=== PATIENT | male | born 1995 | race Caucasian/White ===

== ENCOUNTER 2017-07-29 09:31 | Outpatient (CLI) | payer BC, OTHER | END 2017-07-29 09:32 | disposition home or self-care (01) | LOC: CTENTCT 09:31 | PROVIDERS: ATTEND Specialist | DX: J32.9 Chronic sinusitis, unspecified (principal) | CPT/HCPCS: 70486 ==

== ENCOUNTER 2017-08-01 11:13 | Day surgery (SDC) | payer BC, OTHER ==
[2017-07-31 11:17] VITALS: BMI 31.1
[2017-08-01] MEDS ORDERED: Oxymetazoline HCl 0.05% ( 15 ML ) ONE ×2 (11:45→12:46)
[2017-08-01] MEDS ORDERED: Midazolam HCl 2 mg/2 ml Vial ONE (12:36)
[2017-08-01] MEDS ORDERED: Fentanyl 250 MCG/5 ML VIAL ONE (12:36)
[2017-08-01] MEDS ORDERED: Lidocaine 1% w/Epinephrine 1:200K 30 ML VIAL ONE (12:46)
[2017-08-01] MEDS ORDERED: Bacitracin Zinc Ointment 30 gm TUBE ONE (12:46)
[2017-08-01] MEDS ORDERED: methylPREDNISolone Acetate 40 mg/ml Vial ONE (13:48)
[2017-08-01] MEDS ORDERED: Lidocaine 1% PF 5 ML VIAL ONE (13:52)
[2017-08-01] MEDS ORDERED: Ondansetron HCl/PF 4 MG/2 ML Vial ONE (13:52)
[2017-08-01] MEDS ORDERED: Propofol 200 MG/20 ML VIAL ONE ×2 (13:52)
[2017-08-01] MEDS ORDERED: Glycopyrrolate 0.2 MG/ML 5 ML SYRINGE ONE (13:52)
--- NOTE | 2017-08-01 15:29 | OP ---
PREOPERATIVE DIAGNOSES: Jamie tonsillitis, recurrent obstructive tonsillar hypertrophy, deviated septum, chronic sinusitis, hypertrophic inferior turbinates. POSTOPERATIVE DIAGNOSES: Jamie tonsillitis, recurrent obstructive tonsillar hypertrophy, deviated septum, chronic sinusitis, hypertrophic inferior turbinates. PROCEDURES PERFORMED: 1. Septoplasty. 2. Bilateral nasal endoscopy with maxillary antrostomy. 3. Bilateral nasal endoscopy with total ethmoidectomy. 4. Bilateral nasal endoscopy with frontal sinusotomy. 5. Bilateral nasal endoscopy with sphenoidotomy. 6. Septoplasty. 7. Bilateral nasal septal mucosal resection of inferior turbinates. 8. Tonsillectomy over 12 years of age. PROCEDURE IN DETAIL: After consent was obtained, the patient was identified, brought to the operati ng room, and placed on the operating room table in the supine position. Consent was obtained, notif bere the patient of the possibility of additional infections, bleeding, brain injury, and eye/orbita l injury. The patient was placed on the operating room table, and general endotracheal anesthesia and intravenous access was obtained. The patient was then positioned, prepped and draped for endosc opic sinus surgery. Nasal preparation included trimming nasal vestibular hairs and spraying in topi riccardo Afrin. We then placed Afrin topical solution on nasal pledgets and strategically located them i ntranasally. The perinasal mucosa was injected with 1% lidocaine with 1:100,000 epinephrine in the submucoperichondrial plane of the septum, lateral nasal wall, and anterior to the uncinate. The pat ient was then prepped and draped in a sterile fashion and positioned for endoscopic sinus surgery. Septoplasty: After consent was obtained, the patient was identified, brought to the operating room, and placed on the operating room table in the supine position. Consent was obtained, notifying the patient of the possibility of additional infections, bleeding, brain injury, and eye/orbital injury . The patient was placed on the operating room table, and general endotracheal anesthesia and intr avenous access was obtained. The patient was then positioned, prepped and draped for endoscopic sin us surgery. Nasal preparation included trimming nasal vestibular hairs and spraying in topical Afri n. We then placed Afrin topical solution on nasal pledgets and strategically located them intranasa lly. The perinasal mucosa was injected with 1% lidocaine with 1:100,000 epinephrine in the submucop erichondrial plane of the septum, lateral nasal wall, and anterior to the uncinate. The patient was then prepped and draped in a sterile fashion and positioned for endoscopic sinus surgery. At this point, we then turned our attention to the contralateral side and proceeded with endoscopic sinus surgery. Maxillary Antrostomy: The uncinate was then identified and the extent of the uncinate was appreciat ed by out-fracturing the uncinate with the ball-tip probe. We then used the sickle blade to disarti culate the uncinate from the lateral nasal wall. This was then removed with straight biting and upb iting punches with the remaining shrouds of mucosa and bony septum removed with the micro-debrider. The natural os of the maxillary sinus was then identified and enlarged with the maxillary punches a nd back biting forceps. Total Ethmoidectomy: The anterior face of the ethmoid bulla was entered and with the micro-debrider , dissection continued posteriorly to the ground lamella. The limits of dissection included the ins ertion of the middle turbinate, medial orbital wall, and base of skull. We similarly identified the frontal recess and removed shrouds of bone and debris in that region to obtain patency into the agg er nasi region and frontal recess. We then entered the ground lamella and its anteroinferior aspect and proceeded posteriorly, opening the posterior ethmoid air-cell system. Again, the limits of dis section included the base of skull and medial orbital wall. Frontal sinusotomy: The anterior face of the ethmoid bulla was entered and with the micro-debrider, dissection continued posteriorly to the ground lamella. The limits of dissection included the inse rtion of the middle turbinate, medial orbital wall, and base of skull. We similarly identified the frontal recess and removed shrouds of bone and debris in that region to obtain patency into the Agge r Nasi region and frontal recess. We then entered the ground lamella and its anteroinferior aspect and proceeded posteriorly, opening the posterior ethmoid air-cell system. Again, the limits of diss ection included the base of skull and medial orbital wall. Sphenoidotomy: The anterior face of the sphenoid was identified and entered in its extreme anteroin ferior aspect. A sphenoid punch was then used to enlarge the sphenoidotomy and no injury to the opt ic nerve or internal carotid artery occurred. Septoplasty: After consent was obtained, the patient was identified, brought to the operating room, and placed on the operating room table in the supine position. Consent was obtained, notifying the patient of the possibility of additional infections, bleeding, brain injury, and eye/orbital injury . The patient was placed on the operating room table, and general endotracheal anesthesia and intr avenous access was obtained. The patient was then positioned, prepped and draped for endoscopic sin us surgery. Nasal preparation included trimming nasal vestibular hairs and spraying in topical Afri n. We then placed Afrin topical solution on nasal pledgets and strategically located them intranasa lly. The perinasal mucosa was injected with 1% lidocaine with 1:100,000 epinephrine in the submucop erichondrial plane of the septum, lateral nasal wall, and anterior to the uncinate. The patient was then prepped and draped in a sterile fashion and positioned for endoscopic sinus surgery. At this point, we then turned our attention to the contralateral side and proceeded with endoscopic sinus morin rgery. At the completion of the case, Rice keel splints were placed in the ethmoid cavities after the ethmo idectomy. There were no complications. The patient tolerated the procedure well and was discharged to the recovery room in stable condition prior to return to the preoperative Day Stay with ultimate discharge home. Prescriptions for pain medication and antibiotics were provided. The patient rece ived intramuscular Depo-Medrol during the case. Tonsillectomy: After consent was obtained, the patient was identified, brought to the operating osman m, and placed on the operating table in the supine position. General endotracheal anesthesia and in travenous access was obtained and we proceeded with positioning the patient for oropharyngeal surger y. Oropharyngeal exposure was obtained with a Karsten-Silvino mouth gag after a head drape was placed and secured with a towel clip. The Karsten-Silvino mouth gag was then juaquin pended from the Rochelle tray and palatal elevation was achieved with a red rubber catheter. The right tonsil was addressed first. We used a curved Allis to grasp the tonsil and retract it medially as a n anterior pillar incision was made with a #12 blade. The retrotonsillar fascial plane was then est ablished and blunt dissection was performed with the suction cautery. Blood vessels were anticipate d, identified, and cauterized as they were encountered. Ultimately, dissection was carried to the p osterior tonsillar pillar mucosa which was incised hemostatically, as well as the base of tongue con nection. The tonsil was then passed off as a specimen and bleeding points within the tonsillar bed were cauterized under direct visualization. We subsequently turned our attention to the contralater al side, where using a similar technique, a near identical procedure was performed. Again, the tons il was grasped and retracted medially with a curved Allis as an anterior pillar incision was made wi th a #12 blade. The retrotonsillar fascial plane was established and while the anterior pillar was retracted medially, the hemostatic blunt dissection of the tonsil with a suction cautery was perform ed with blood vessels anticipated, identified, and cauterized as they were encountered. Again, diss ection continued to the base of tongue and posterior tonsillar pillar mucosa which was incised in a hemostatic fashion. The tonsillar beds were then carefully inspected and bleeding points were ident ified and cauterized with a suction cautery. After this portion of the procedure, hemostasis was co mpletely obtained. The patient's oral cavity was copiously irrigated with iced saline and subsequen tly suctioned. We then used the red rubber catheter to suction the gastric contents and the patient was subsequently aroused, awakened, and extubated without difficulty and transported to the recover y room in stable condition. There were no complications.
[2017-08-01] MEDS ORDERED: Meperidine HCl/PF 25 MG/ML VIAL ONE (15:33)
[2017-08-01] MEDS ORDERED: Fentanyl 100 MCG/2 ML VIAL ONE (15:45)
[2017-08-01] MEDS ORDERED: Meperidine HCl/PF 25 MG/ML VIAL IV PRN (15:54)
[2017-08-01] MEDS ORDERED: Ondansetron HCl/PF 4 MG/2 ML Vial IVP PRN (15:54)
[2017-08-01] MEDS ORDERED: Promethazine HCl 25 MG/ML VIAL IM/IV PRN (15:54)
== END 2017-08-01 17:45 | disposition home or self-care (01) ==
LOC: SDC 11:13
PROVIDERS: ATTEND Specialist
PROC: 099Q4ZZ Drainage of Right Maxillary Sinus, Percutaneous Endoscopic Approach (ICD-10-PCS; principal; 2017-08-01)
PROC: 09BT4ZZ Excision of Left Frontal Sinus, Percutaneous Endoscopic Approach (ICD-10-PCS; principal; 2017-08-01)
PROC: 09TL4ZZ Resection of Nasal Turbinate, Percutaneous Endoscopic Approach (ICD-10-PCS; principal; 2017-08-01)
PROC: 09SM4ZZ Reposition Nasal Septum, Percutaneous Endoscopic Approach (ICD-10-PCS; principal; 2017-08-01)
PROC: 09BW4ZZ Excision of Right Sphenoid Sinus, Percutaneous Endoscopic Approach (ICD-10-PCS; principal; 2017-08-01)
PROC: 099R4ZZ Drainage of Left Maxillary Sinus, Percutaneous Endoscopic Approach (ICD-10-PCS; principal; 2017-08-01)
PROC: 09TV4ZZ Resection of Left Ethmoid Sinus, Percutaneous Endoscopic Approach (ICD-10-PCS; principal; 2017-08-01)
PROC: 09BS4ZZ Excision of Right Frontal Sinus, Percutaneous Endoscopic Approach (ICD-10-PCS; principal; 2017-08-01)
PROC: 0CTPXZZ Resection of Tonsils, External Approach (ICD-10-PCS; principal; 2017-08-01)
PROC: 09TU4ZZ Resection of Right Ethmoid Sinus, Percutaneous Endoscopic Approach (ICD-10-PCS; principal; 2017-08-01)
PROC: 09BX4ZZ Excision of Left Sphenoid Sinus, Percutaneous Endoscopic Approach (ICD-10-PCS; principal; 2017-08-01)
DX: J35.01 Chronic tonsillitis (principal); J32.9 Chronic sinusitis, unspecified; J34.2 Deviated nasal septum; J34.3 Hypertrophy of nasal turbinates; F17.290 Nicotine dependence, other tobacco product, uncomplicated; Z79.51 Long term (current) use of inhaled steroids; Z79.899 Other long term (current) drug therapy; Z98.890 Other specified postprocedural states
CPT/HCPCS: 88304; 96374; J0131; J0360; J1030; J2001; J2175; J2250; J2270; J2405; J2704; J3010

== ENCOUNTER 2017-08-06 00:49 | Observation (INO) | payer BC, OTHER ==
[2017-08-06] MEDS ORDERED: Fentanyl 100 MCG/2 ML VIAL ONE ×3 (01:18→03:05)
[2017-08-06] MEDS ORDERED: EPINEPHrine 1 MG/10 ML Abboject SYRINGE ONE ×2 (01:32→02:12)
[2017-08-06] MEDS ORDERED: Propofol 200 MG/20 ML VIAL ONE (01:48)
[2017-08-06] MEDS ORDERED: Succinylcholine Chloride 20 MG/ML 10 ml SYRINGE FS ONE (01:48)
[2017-08-06] MEDS ORDERED: Dexamethasone 20 MG/5 ML VIAL ONE (01:48)
[2017-08-06] MEDS ORDERED: Lidocaine 1% PF 5 ML VIAL ONE (01:48)
[2017-08-06] MEDS ORDERED: Ondansetron HCl/PF 4 MG/2 ML Vial ONE (01:48)
[2017-08-06] MEDS ORDERED: Promethazine HCl 25 MG/ML VIAL IM PRN (02:51)
[2017-08-06] MEDS ORDERED: Ondansetron HCl/PF 4 MG/2 ML Vial IVP PRN (02:51)
[2017-08-06] MEDS ORDERED: Promethazine HCl 25 MG/ML VIAL SLOW IVP PRN (02:51)
[2017-08-06] MEDS: Sodium Chloride 0.9% 1,000 ML IV SCH ×3 (04:04→20:27)
[2017-08-06 04:12] VITALS: BMI 30.2
--- NOTE | 2017-08-06 04:42 | OP ---
DATE OF PROCEDURE: 08/06/2017 PREOPERATIVE DIAGNOSES: 1. Post-tonsillectomy hemorrhage. 2. Post-sinus surgery epistaxis. POSTOPERATIVE DIAGNOSES: 1. Post-tonsillectomy hemorrhage. 2. Post-sinus surgery epistaxis. PROCEDURE PERFORMED: 1. Control of oropharyngeal hemorrhage. 2. Nasal endoscopy with control of epistaxis. SURGEON: Dr. Kyle Mcgarry ANESTHESIA: General endotracheal anesthetic. ESTIMATED BLOOD LOSS: Blood loss 50 mL. FLUIDS: 600 mL. COMPLICATIONS: None. FINDINGS: 1. Right superior pole tonsillar bleed. 2. Diffuse hemorrhage from both nasal passages, very difficult to examine intranasally even endosco pically because of swelling and anatomy. PACKING: Sinus packs were placed bilaterally. INDICATIONS FOR SURGERY: The patient is a 22-year-old man who underwent tonsillectomy and sinus yamile federico approximately 5 days ago. He has had bleeding and is brought to the operating room today for t reatment. DESCRIPTION OF OPERATION: After properly identifying patient, the patient was brought from the [facility] department to the operating room, placed on the operating table, placed under adequate general endotracheal anesthetic without difficulty. Time out was performed satisfactorily. The table was turned 90 degrees. The patient was suspended from a Muñoz stand with a McIvor mouth ga g. There was a large clot in the right tonsillar fossa which was suctioned out and there was some b leeding noted from the superior lateral aspect, which was cauterized with suction Bovie. Once this was completed, then there was no further bleeding noted in the pharynx. I relaxed the patient, raymundo opal the mouth gag and let him sit for several minutes and then reexamined. There was no further ble eding noted. The table was then turned back straight. The nose was examined endoscopically after removing the Rh inorocket packs bilaterally and then packed with epinephrine pledgets. There was a laceration along the floor of the right septum and there was just diffuse oozing noted all throughout along the infe rior turbinate. I really could not visualize the middle meatus on either side because of how tight everything was and the swelling despite using epinephrine pledgets. I did get a good look into the sphenoethmoid recesses bilaterally and really did not see any source of bleeding back there. I plac ed sinus packs in both middle meatus regions bilaterally, also tamponading the inferior turbinates p osteriorly and this seemed to stop the oozing. I then suctioned the nose and nasopharynx out. I al lowed the patient to sit for several minutes, re-examined endoscopically, did not see any further bl eeding, it was still dry in the nasopharynx. So at this point the procedure was completed. The pat ient was turned back over to Anesthesia. The patient was awakened and extubated in the operating ro om and taken to the recovery room in stable condition.
[2017-08-06] MEDS: FLU VACC QS2017-18 36 mo. & older 0.5 ML SYRINGE IM ONE ×2 (08:06→08:12)
[2017-08-06] MEDS: Cephalexin 250 MG CAP PO SCH ×2 (08:06→20:38)
[2017-08-06] MEDS: Hydrocodone-Acetamin 15 ML UDCUP PO PRN ×4 (08:54→21:08)
[2017-08-07] MEDS: Hydrocodone-Acetamin 15 ML UDCUP PO PRN ×2 (01:47→08:40)
[2017-08-07 04:22] VITALS: TEMP 97.9
[2017-08-07 08:10] VITALS: BP 135/87
[2017-08-07] MEDS: Cephalexin 250 MG CAP PO SCH (08:30)
== END 2017-08-07 09:11 | disposition home or self-care (01) ==
LOC: ERS 00:49 → SDC 01:25 → SURG A 02:30
PROVIDERS: ADMIT Otolaryngology; ATTEND Otolaryngology
PROC: 0W33XZZ Control Bleeding in Oral Cavity and Throat, External Approach (ICD-10-PCS; principal; 2017-08-07)
PROC: 0W3Q8ZZ Control Bleeding in Respiratory Tract, Via Natural or Artificial Opening Endoscopic (ICD-10-PCS; 2017-08-07)
DX: J95.830 Postprocedural hemorrhage of a respiratory system organ or structure following a respiratory system procedure (principal); R04.0 Epistaxis; F17.200 Nicotine dependence, unspecified, uncomplicated; Z79.2 Long term (current) use of antibiotics; Z98.818 Other dental procedure status; Z90.89 Acquired absence of other organs; Z98.890 Other specified postprocedural states
CPT/HCPCS: 96374; 99285; G0378; J0171; J1100; J2001; J2405; J2704; J3010

== ENCOUNTER 2017-08-15 07:31 | Day surgery (SDC) | payer BC, OTHER ==
[2017-08-14 15:19] VITALS: BMI 31.1
[2017-08-15] MEDS ORDERED: Oxymetazoline HCl 0.05% ( 15 ML ) ONE ×2 (07:49→08:37)
[2017-08-15] MEDS ORDERED: Lidocaine 1% w/Epinephrine 1:200K 30 ML VIAL ONE (08:37)
[2017-08-15] MEDS ORDERED: Fentanyl 100 MCG/2 ML VIAL ONE (08:49)
[2017-08-15] MEDS ORDERED: Glycopyrrolate 0.2 MG/ML 5 ML SYRINGE ONE (09:10)
[2017-08-15] MEDS ORDERED: Propofol 200 MG/20 ML VIAL ONE (09:10)
[2017-08-15] MEDS ORDERED: Lidocaine 1% PF 5 ML VIAL ONE (09:10)
[2017-08-15] MEDS ORDERED: Bacitracin Zinc Ointment 30 gm TUBE ONE (09:28)
--- NOTE | 2017-08-15 09:49 | OP ---
PREOPERATIVE DIAGNOSES: Chronic sinusitis and postoperative sinus adhesions. POSTOPERATIVE DIAGNOSES: Chronic sinusitis and postoperative sinus adhesions. PROCEDURE PERFORMED: Bilateral nasal endoscopy with lysis of adhesions. PROCEDURE IN DETAIL: After consent was obtained, the patient was identified and brought to the oper ating room, and placed on the operating table in the supine position. Anesthesia was obtained. The patient underwent systematic nasal endoscopy and topical decongestion. Several adhesions were foun d between the middle turbinate and the lateral nasal wall with the septum. These adhesions were mary en down as were the ones to the anterior aspect of the middle turbinates. Absorbable packing was pl aced and Yi splints were replaced as well. The patient was then suture secured the nasal septum. The patient was awakened, extubated, and taken to recovery where he remained in stable condition p rior to discharge home.
== END 2017-08-15 12:00 | disposition home or self-care (01) ==
LOC: SDC 07:31
PROVIDERS: ATTEND Specialist
PROC: 09N Ear, Nose, Sinus, Release (ICD-10-PCS; principal; 2017-08-15)
DX: J32.9 Chronic sinusitis, unspecified (principal); J34.89 Other specified disorders of nose and nasal sinuses; Z79.2 Long term (current) use of antibiotics; Z90.89 Acquired absence of other organs; Z98.890 Other specified postprocedural states; Z98.818 Other dental procedure status; Z87.81 Personal history of (healed) traumatic fracture
CPT/HCPCS: J2001; J2704; J3010